=== PATIENT | male | born 1960 | race Caucasian/White ===

== ENCOUNTER → 2018-02-28 | Outpatient (CLI) | payer OTHER ==
--- NOTE | 2018-02-28 11:04 | PCVCIMAG ---
APPROVED REPORT Study performed: 02/28/2018 10:08:45 EXAM: Comprehensive 2D, Doppler, and color-flow Echocardiogram Patient Location: Echo lab Status: routine BSA: 2.28 HR: 68 bpmBP: 132/82 mmHg Rhythm: NSR Other Information Study Quality: Adequate Risk Factors: Cardiac Risk Factors: Hyperlipidemia Indications Elevated CA Score 2D Dimensions IVSd: 9.20 (7-11mm)LVOT Diam: 20.00 (18-24mm) LVDd: 40.54 mm PWd: 8.59 (7-11mm)Ascending Ao: 38.24 (22-36mm) LVDs: 28.73 (25-40mm) Left Atrium: 32.38 (27-40mm) Aortic Root: 36.92 mm LV Single Plane 4CH: 56.88 % LV Single Plane 2CH: 59.45 % Biplane EF: 58.3 % Volumes Left Atrial Volume (Systole) Single Plane 4CH: 40.64 mLSingle Plane 2CH: 53.83 mL LA ESV Index: 24.00 mL/m2 Aortic Valve AoV Peak Manjit.: 1.22 m/s AO Peak Gr.: 5.93 mmHgLVOT Max P.75 mmHg LVOT Max V: 1.09 m/s PHILIP Vmax: 2.89 cm2 Mitral Valve E/A Ratio: 0.8 MV Decel. Time: 350.04 ms MV E Max Manjit.: 0.64 m/s MV A Manjit.: 0.83 m/s MV PHT: 101.51 ms IVRT: 79.58 ms TDI E/Lateral E': 8.00E/Medial E': 7.11 Medial E' Manjit.: 0.09 m/s Lateral E' Manjit.: 0.08 m/s Pulmonary Valve PV Peak Manjit.: 1.25 m/sPV Peak Gr.: 6.25 mmHg NV End Vmax: 0.99 m/s Pulmonary Vein P Vein S: 0.59 m/sP Vein A: 0.32 m/s P Vein D: 0.50 m/sP Vein A Dur.: 114.2 msec P Vein S/D Ratio: 1.18 Tricuspid Valve TR Peak Manjit.: 2.47 m/sRAP Estimate: 7.00 mmHg TR Peak Gr.: 24.47 mmHg PA Pressure: 32.00 mmHg Left Ventricle The left ventricle is normal size. There is normal LV segmental wall motion. There is normal left ventricular wall thickness. Left ventricular systolic function is normal. The left ventricular ejection fraction is within the normal range. LVEF is 55-60%. Grade I - abnormal relaxation pattern. Right Ventricle The right ventricle is normal size. The right ventricular systolic function is normal. Atria The left atrium size is normal. The right atrium size is normal. Aortic Valve The aortic valve is trileaflet, mildly sclerotic. Trace aortic regurgitation is present. There is no aortic valvular stenosis. Mitral Valve The mitral valve is normal in structure. Trace mitral regurgitation. No evidence of mitral valve stenosis. Tricuspid Valve The tricuspid valve is normal in structure. Trace tricuspid regurgitation. Pulmonary artery pressure is 32 mmHg. Pulmonic Valve The pulmonary valve is normal in structure. There is no pulmonic valvular regurgitation. Great Vessels The aortic root is normal in size. Ascending aorta measures 3.8 cm. IVC is normal in size and collapses >50% with inspiration. Pericardium There is no pericardial effusion. <Conclusion> Left ventricular systolic function is normal. There is normal LV segmental wall motion. LVEF is 55-60%. Mild diastolic dysfunction The aortic valve is trileaflet, mildly sclerotic, no stenosis. Trace insufficiency The mitral valve is normal in structure. Trace mitral regurgitation. Trace tricuspid regurgitation. Pulmonary artery pressure of 32 mmHg. Ascending aorta measures 3.8 cm. There is no pericardial effusion.
== END | disposition home or self-care (01) ==
LOC: PCVCIMAG 16:00
PROVIDERS: ATTEND Internal Medicine
DX: R93.1 Abnormal findings on diagnostic imaging of heart and coronary circulation (principal); E78.5 Hyperlipidemia, unspecified
CPT/HCPCS: 93306